=== PATIENT | female | born 1995 | race Caucasian/White ===

== ENCOUNTER 2017-04-15 09:13 | Inpatient (IN) | payer OTHER ==
[2017-04-15] MEDS ORDERED: Lactated Ringer's 1,000 ML IV SCH ×2 (09:40→09:45)
[2017-04-15 09:44] VITALS: BMI 29.6
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
[2017-04-15 11:12] LABS: BASO # 0.1 K/uL (0.0-0.2); BASO % 0.5 % (0.0-2.0); EOS # 0.2 K/uL (0.0-0.7); EOS % 1.8 % (0.0-4.0); HEMOGLOBIN 10.4 g/dL (11.0-16.0); LYMPH # 1.7 K/uL (1.0-4.3); LYMPH % 16.2 % (20.0-40.0); MEAN CELL VOLUME 74.5 fL (81.0-99.0); MEAN CORPUSCULAR HEMOGLOBIN 23.4 pg (27.0-31.0); MEAN CORPUSCULAR HGB CONC 31.4 g/dL (33.0-37.0); MONO # 0.7 K/uL (0.0-0.8); MONO % 6.6 % (0.0-10.0); NEUT # 7.8 K/uL (1.8-7.0); NEUT % 74.9 % (50.0-75.0); RBC 4.43 Mil/uL (3.80-5.20); WHITE BLOOD COUNT 10.5 K/uL (4.8-10.8)
[2017-04-15 11:17] LABS: ALBUMIN 3.3 g/dL (3.5-5.0)
[2017-04-15 11:20] LABS: ALB/GLOB RATIO 0.9 (1.0-2.1); AST/SGOT 40 U/L (14-36); GFR AFRICAN-AMERICAN > 60; GFR NON-AFRICAN AMERICAN > 60
[2017-04-15 11:21] LABS: ALT/SGPT 52 U/L (9-52); BLOOD UREA NITROGEN 9 mg/dL (7-17); CALCIUM 8.6 mg/dl (8.6-10.4); PROTHROMBIN TIME 11.1 SECONDS (9.7-12.2)
[2017-04-15 16:00] LABS: HEMOGLOBIN 9.7 g/dL (11.0-16.0); MEAN CELL VOLUME 74.6 fL (81.0-99.0); MEAN CORPUSCULAR HEMOGLOBIN 23.5 pg (27.0-31.0); MEAN CORPUSCULAR HGB CONC 31.5 g/dL (33.0-37.0); MEAN PLATELET VOLUME 8.5 fL (7.2-11.7); RBC 4.14 Mil/uL (3.80-5.20); RED CELL DISTRIBUTION WIDTH 17.1 % (11.5-14.5); WHITE BLOOD COUNT 11.8 K/uL (4.8-10.8)
[2017-04-15 16:17] LABS: PROTHROMBIN TIME 11.4 SECONDS (9.7-12.2)
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
[2017-04-15 21:58] LABS: BASO % 0.4 % (0.0-2.0); EOS # 0.2 K/uL (0.0-0.7); EOS % 1.8 % (0.0-4.0); LYMPH # 2.1 K/uL (1.0-4.3); LYMPH % 17.3 % (20.0-40.0); MEAN CELL VOLUME 74.2 fL (81.0-99.0); MEAN CORPUSCULAR HEMOGLOBIN 23.2 pg (27.0-31.0); MEAN CORPUSCULAR HGB CONC 31.2 g/dL (33.0-37.0); MEAN PLATELET VOLUME 8.2 fL (7.2-11.7); MONO # 0.8 K/uL (0.0-0.8); MONO % 6.8 % (0.0-10.0); NEUT # 8.8 K/uL (1.8-7.0); NEUT % 73.7 % (50.0-75.0); RBC 4.3 Mil/uL (3.80-5.20); WHITE BLOOD COUNT 11.9 K/uL (4.8-10.8)
[2017-04-15 22:06] LABS: ALBUMIN 3.2 g/dL (3.5-5.0)
[2017-04-15 22:09] LABS: ALT/SGPT 63 U/L (9-52); AST/SGOT 47 U/L (14-36); BLOOD UREA NITROGEN 8 mg/dL (7-17); CALCIUM 8.6 mg/dl (8.6-10.4); GFR AFRICAN-AMERICAN > 60; GFR NON-AFRICAN AMERICAN > 60
[2017-04-15 22:10] LABS: PROTHROMBIN TIME 11.6 SECONDS (9.7-12.2)
[2017-04-16 06:27] LABS: BASO # 0.1 K/uL (0.0-0.2); EOS # 0.2 K/uL (0.0-0.7); HEMOGLOBIN 9.9 g/dL (11.0-16.0); LYMPH % 23.3 % (20.0-40.0); MEAN CELL VOLUME 73.9 fL (81.0-99.0); MEAN CORPUSCULAR HEMOGLOBIN 23.9 pg (27.0-31.0); MEAN CORPUSCULAR HGB CONC 32.3 g/dL (33.0-37.0); MEAN PLATELET VOLUME 8.2 fL (7.2-11.7); MONO # 0.6 K/uL (0.0-0.8); MONO % 6.5 % (0.0-10.0); NEUT # 5.8 K/uL (1.8-7.0); NEUT % 67.2 % (50.0-75.0); RBC 4.16 Mil/uL (3.80-5.20); RED CELL DISTRIBUTION WIDTH 17.1 % (11.5-14.5); WHITE BLOOD COUNT 8.6 K/uL (4.8-10.8)
[2017-04-16 06:39] LABS: INR 1.1; PROTHROMBIN TIME 12.2 SECONDS (9.7-12.2)
[2017-04-16 07:02] LABS: ALBUMIN 3.1 g/dL (3.5-5.0); ALT/SGPT 61 U/L (9-52); AST/SGOT 47 U/L (14-36); BLOOD UREA NITROGEN 9 mg/dL (7-17); CALCIUM 8.4 mg/dl (8.6-10.4); GFR AFRICAN-AMERICAN > 60; GFR NON-AFRICAN AMERICAN > 60
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
[2017-04-16 08:48] LABS: SQUAMOUS EPITHIAL 11 /hpf (0-5); URINE BACTERIA OCC (<OCC); URINE BILIRUBIN NEGATIVE (NEGATIVE); URINE BLOOD NEGATIVE (NEGATIVE); URINE CLARITY Hazy (Clear); URINE COLOR Yellow (YELLOW); URINE GLUCOSE (UA) NORMAL (Normal); URINE LEUKOCYTE ESTERASE 3+ Leu/uL (Negative); URINE NITRATE NEGATIVE (NEGATIVE); URINE PROTEIN NEGATIVE (NEGATIVE); URINE UROBILINOGEN NORMAL mg/dL (0.2-1.0)
[2017-04-16 09:36] LABS: URINE BACTERIA OCC (<OCC); URINE BILIRUBIN NEGATIVE (NEGATIVE); URINE BLOOD NEGATIVE (NEGATIVE); URINE CLARITY Hazy (Clear); URINE COLOR Yellow (YELLOW); URINE GLUCOSE (UA) NORMAL (Normal); URINE LEUKOCYTE ESTERASE 3+ Leu/uL (Negative); URINE NITRATE NEGATIVE (NEGATIVE); URINE PROTEIN NEGATIVE (NEGATIVE); URINE UROBILINOGEN NORMAL mg/dL (0.2-1.0)
[2017-04-16 09:44] LABS: SQUAMOUS EPITHIAL 11 /hpf (0-5)
== END 2017-04-16 13:05 | disposition home or self-care (01) | DRG 914 ==
LOC: C.EROB 09:13 → C.4D 09:22
PROVIDERS: ADMIT Obstetrics & Gynecology; ATTEND Obstetrics & Gynecology
DX: S39.81XA Other specified injuries of abdomen, initial encounter (principal); Z3A.38 38 weeks gestation of pregnancy; V49.88XA Car occupant (driver) (passenger) injured in other specified transport accidents, initial encounter

== ENCOUNTER 2017-04-24 12:16 | Inpatient (IN) | payer OTHER ==
[2017-04-24] MEDS ORDERED: Dextrose 5%/Lactated Ringer's 1,000 ML IV SCH (12:45)
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
[2017-04-24 12:55] LABS: BASO # 0.1 K/uL (0.0-0.2); BASO % 0.5 % (0.0-2.0); EOS # 0.1 K/uL (0.0-0.7); EOS % 1.4 % (0.0-4.0); HEMOGLOBIN 10.9 g/dL (11.0-16.0); LYMPH # 1.4 K/uL (1.0-4.3); LYMPH % 14.2 % (20.0-40.0); MEAN CELL VOLUME 74.1 fL (81.0-99.0); MEAN CORPUSCULAR HGB CONC 32.4 g/dL (33.0-37.0); MEAN PLATELET VOLUME 8.2 fL (7.2-11.7); MONO # 0.5 K/uL (0.0-0.8); MONO % 4.6 % (0.0-10.0); NEUT # 7.9 K/uL (1.8-7.0); NEUT % 79.3 % (50.0-75.0); RBC 4.54 Mil/uL (3.80-5.20)
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
[2017-04-24] MEDS ORDERED: Oxytocin 30 UNIT 30 UNITS/500 ML BAG IV SCH ×2 (13:00→17:00)
[2017-04-24 13:04] LABS: ALBUMIN 3.4 g/dL (3.5-5.0)
[2017-04-24 13:07] LABS: ALB/GLOB RATIO 0.9 (1.0-2.1); AST/SGOT 44 U/L (14-36); BLOOD UREA NITROGEN 6 mg/dL (7-17); GFR AFRICAN-AMERICAN > 60; GFR NON-AFRICAN AMERICAN > 60
[2017-04-24 13:08] LABS: ALT/SGPT 57 U/L (9-52); CALCIUM 8.4 mg/dl (8.6-10.4)
[2017-04-24 13:38] LABS: HEPATITIS B SURFACE AG NEGATIVE (NEGATIVE)
[2017-04-24] MEDS ORDERED: Oxytocin 30 UNIT 30 UNITS/500 ML BAG IV ONE (13:46)
--- NOTE | 2017-04-24 15:07 | OBPN ---
Datetime: 04/24/2017 15:05 IP Progress Impression: Normal progression of labor IP Informed Consent Obtain: Vaginal Delivery IP Procedures: Artificial ROM IP Progress Plan: Continue present management Membranes, Provider: Ruptured Amniotic Fluid Color, Provider: Clear FHR - Baseline A Provider: 135 IP Progress Note Comment: pt seen and examiend reports feeling pressue, ctx pain, 03/13, denies lof, vb, +Fm. decliend pianmanamgnet at this time vss ve see above AROM / clear A/p @ 39+ wks GA Augmentation of labor, GBS positive -pitocin per prototol -cont toco and efm -epidural prn -gbs propylaxis -cont current mangent Vital Signs Provider: Reviewed NICHD Accel Fetus A IP Provider: 15X15 FHR Category Provider Fetus A: Category I NICHD Variability Prov Fetus A: Moderate 6-25bpm Dilatation, Provider: 5 Effacement, Provider: 70 Station, Provider: -2 Datetime: 04/24/2017 12:42 Contraction Comments Provider: q 4-6 min Gestation - Est Wks by US: 39.3 Weight - Estimated: 3300 Presentation-Admit: Vertex NICHD Decel Fetus A IP Provider: None
[2017-04-24] MEDS ORDERED: Bupivacaine HCl 0.25% PF (10 ml) Inj ONE (15:30)
[2017-04-24] MEDS ORDERED: Bupivacaine 0.125%/FentaNYL 0 ML EPI ONE (15:31)
[2017-04-24] MEDS ORDERED: Benzocaine/Menthol 20%-0.5% Topical Spray (60 ml) TOP PRN (16:59)
[2017-04-24] MEDS ORDERED: Oxycodone/Acetaminophen 5/325 mg Tab PO PRN ×2 (16:59)
--- NOTE | 2017-04-24 17:00 | OBDS ---
DELIVERY PERSONNEL Delivery Doctor: El Keene MD MATERNAL INFORMATION Maternal Complications: None Provider Comments: pt was fully dilated and pushing. atrauamtic spontaneous delivery of head in TAMI position, no nuchal cord. followed by atraumatc, spontaneous delivery of anterior followed by posteri or shoulder followed by delivery of body. Both oral and nasal passages of the baby were bulb suctione d after a vigrous cry. Umbilcal cord clamped and cut. Baby handed to mother on abomen with RN karmen oneal. Cord blood collected and sent x 2. Spontaneous delilvery of intact placenta with membranes. Fu ndus fimr, good hemostaiss. No complicatoins. Live male . 9,9 Weight 6lb 15 ounces EBL 200ml no complications LABOR SUMMARY EDC: 04/28/2017 00:00 No. Babies in Womb: 1 Attempted: No LABOR INFORMATION Reason for Induction: Not Applicable Onset of Labor: 04/24/2017 12:49 Oxytocin: Augmentation Group B Beta Strep: Positive Steroids Given: None Reason Steroids Not Administered: Not Applicable MEMBRANES Membranes Rupture Method: Artificial Rupture of Membranes: 04/24/2017 14:50 Length of Rupture (hrs): 1.88 Amniotic Fluid Color: Clear Amniotic Fluid Amount: Moderate Amniotic Fluid Odor: Normal STAGES OF LABOR Stage 3 hrs: 0 Stage 3 min: 2 Total Time in Labor hrs: 3 Total Time in Labor min: 56 VAGINAL DELIVERY Laceration Repair Note: intact Count Comment: count correct yes BABY A INFORMATION Infant Delivery Date/Time: 04/24/2017 16:43 Method of Delivery: Vaginal Born in Route : No : N/A Forceps: N/A Vacuum Extraction: N/A Shoulder Dystocia : No SHOULDER DYSTOCIA BABY A Delivery Date/Time: 04/24/2017 16:43 PRESENTATION/POSITION BABY A Presentation: Cephalic Cephalic Presentation: Vertex Vertex Position: Right Occipital Anterior Breech Presentation: N/A PLACENTA INFORMATION BABY A Placenta Delivery Time : 04/24/2017 16:45 Placenta Method of Delivery: Spontaneous Placenta Status: Delivered SCORES BABY A Heart Rate 1 min: >100 bpm Resp Effort 1 min: Good Cry Reflex Irritability 1 min: Cough or Sneeze or Pulls Away Muscle Tone 1 min: Active Motion Color 1 min: Body Waterproof, Extremities Blue Resuscitation Effort 1 min: Tactile Stimulation SCORE 1 MIN: 9 Heart Rate 5 min: >100 bpm Resp Effort 5 min: Good Cry Reflex Irritability 5 min: Cough or Sneeze or Pulls Away Muscle Tone 5 min: Active Motion Color 5 min: Body Waterproof, Extremities Blue SCORE 5 MIN: 9 INFORMATION BABY A Gestational Age at Delivery: 39.0 Gestational Status: Term Outcome : Liveborn Condition : Stable Infant Sex: Male IDENTIFICATION/MEDS BABY A ID Band Number: [id number] ID Band Location: Left Leg; Left Arm Sensor Applied: Yes Sensor Number: [id number] Sensor Location : Cord Clamp WEIGHT/LENGTH BABY A Infant Birthweight (gms): 3160 Infant Weight (lb): 6 Weight (oz): 15 Length Inches: 19.50 Infant Length cms: 49.5 CORD INFORMATION BABY A No. Cord Vessels: 3 Nuchal Cord : N/A Cord Blood Taken: Yes Infant Suction: Mouth; Nose ASSESSMENT BABY A Complications: None Complications Other: none Physical Findings at Delivery: Within Normal Limits Respirations: Appears Normal Ships Equipment Engineer/ALS Called : No Care By: sharan Transferred To: Remains with Mother
[2017-04-24 18:35] LABS: SQUAMOUS EPITHIAL 5 /hpf (0-5); URINE BACTERIA RARE (<OCC); URINE BILIRUBIN NEGATIVE (NEGATIVE); URINE BLOOD NEGATIVE (NEGATIVE); URINE CLARITY Clear (Clear); URINE COLOR Yellow (YELLOW); URINE GLUCOSE (UA) NORMAL (Normal); URINE LEUKOCYTE ESTERASE NEG Leu/uL (Negative); URINE NITRATE NEGATIVE (NEGATIVE); URINE PROTEIN NEGATIVE (NEGATIVE); URINE UROBILINOGEN NORMAL mg/dL (0.2-1.0)
[2017-04-24 19:07] VITALS: RESP 20
[2017-04-25 08:06] LABS: MEAN CELL VOLUME 74.4 fL (81.0-99.0); MEAN CORPUSCULAR HEMOGLOBIN 23.7 pg (27.0-31.0); MEAN CORPUSCULAR HGB CONC 31.9 g/dL (33.0-37.0); MEAN PLATELET VOLUME 8.6 fL (7.2-11.7); RBC 4.22 Mil/uL (3.80-5.20); RED CELL DISTRIBUTION WIDTH 17.6 % (11.5-14.5); WHITE BLOOD COUNT 14.4 K/uL (4.8-10.8)
[2017-04-25] MEDS: Multiple Vitamins Tab PO SCH (09:30)
--- NOTE | 2017-04-25 11:43 | OBPPN ---
Datetime: 04/25/2017 11:40 PP Pain Prov: Within normal limits PP Nausea Prov: Denies PP Flatus Prov: Yes PP BM Prov: No PP Breasts Prov: Normal PP Heart Prov: Normal PP Lungs Prov: Normal PP Abdomen/Uterus Prov: Normal PP Lochia Prov: Normal PP Vulva/Perineum Prov: Normal PP CVA Tenderness Prov: Normal PP Extremities Prov: Normal PP C/S Incision Prov: Not Applicable PP Progress Prov: Normal PP Impression Prov: Normal progression PP Plan Prov: Continue present management PP Progress Note Prov: pt seen and examined and reports pain is controlled with medication. pt is am bualting and voiding without difficulty. Pt denies any fevers, chills, nausea or vomiting, CP, SOB. P t reports passing flatus, no BM. Pt denies heavy bleeding Pt is breast feeding. VSS PE: GEN NAD, AAOx 3 BREAST: NT, Non engorbed b/l CVS: RRR, +S1/S2 RESP: CTAB/l ABD: Soft, NT/ND, +BS. non distneed, no guarding, no rebound tendeness, no rigidity FUNDUS: Firm, at level of umbilicus, minimal lochia, non foul smelling EXT: negative homans sign, negative calf tenderness a/p s/p PPD #1 doing well -pain managment: percocet/motrin -Diet: regular -Activity: ambuation, encourage breast feeding -f/u am labs IP PP Procedures: None Vital Signs Provider PP: Reviewed; Within Normal Limits
[2017-04-25 14:04] LABS: BASO % 0.2 % (0.0-2.0); EOS # 0.2 K/uL (0.0-0.7); EOS % 1.2 % (0.0-4.0); HEMOGLOBIN 9.9 g/dL (11.0-16.0); LYMPH # 2.6 K/uL (1.0-4.3); LYMPH % 17.5 % (20.0-40.0); MEAN CELL VOLUME 74.7 fL (81.0-99.0); MEAN CORPUSCULAR HEMOGLOBIN 23.2 pg (27.0-31.0); MEAN PLATELET VOLUME 8.5 fL (7.2-11.7); MONO # 0.8 K/uL (0.0-0.8); MONO % 5.6 % (0.0-10.0); NEUT % 75.5 % (50.0-75.0); RBC 4.29 Mil/uL (3.80-5.20); RED CELL DISTRIBUTION WIDTH 17.4 % (11.5-14.5); WHITE BLOOD COUNT 14.6 K/uL (4.8-10.8)
[2017-04-25 16:16] VITALS: O2SAT 98
[2017-04-26 00:18] VITALS: BP 103/62; PULSE 68; TEMP 97.3
--- NOTE | 2017-04-26 07:35 | OBDCSUM ---
Datetime: 04/26/2017 07:34 Discharged to, Provider: Home Follow up at, Provider: [facility] Discharge Diagnosis, Provider: Term Delivered Follow up in weeks, Provider: clinic Disch Activity Restrictions: No exercising; No lifting; No driving; Minimize walking; Minimize stair -climbing; No sexual activity; Nothing in vagina - [place], tampons, douche Discharge Comment, Provider: no sex motrin prn f/u in 6[facility]
--- NOTE | 2017-04-26 07:35 | OBPPN ---
Datetime: 04/26/2017 07:33 PP Pain Prov: Within normal limits PP Nausea Prov: Denies PP Flatus Prov: Yes PP Abdomen/Uterus Prov: Normal PP Lochia Prov: Normal PP Extremities Prov: Normal PP Comments Phys Exam Prov: fudus below umblicus ext mild edema,no calf ten PP Impression Prov: Normal progression PP Plan Prov: Discharge PP Progress Note Prov: pt was seen at bed side, pain under control,no n/v, tolerating deit, voiding, min lochia, flatus+ ppd#2 s/p dc home no sex motrin prn f/u in 6wee Vital Signs Provider PP: Reviewed; Within Normal Limits
[2017-04-26] MEDS: Multiple Vitamins Tab PO SCH (09:13)
== END 2017-04-26 12:00 | disposition home or self-care (01) | DRG 373 ==
LOC: C.EROB 12:16 → C.4D 12:31 → C.4M 18:00
PROVIDERS: ADMIT Obstetrics & Gynecology; ATTEND Obstetrics & Gynecology
PROC: 10E0XZZ Delivery of Products of Conception, External Approach (ICD-10-PCS; principal; 2017-04-24)
PROC: 10907ZC Drainage of Amniotic Fluid, Therapeutic from Products of Conception, Via Natural or Artificial Opening (ICD-10-PCS; 2017-04-24)
DX: O99.284 Endocrine, nutritional and metabolic diseases complicating childbirth (principal); E03.9 Hypothyroidism, unspecified; O99.824 Streptococcus B carrier state complicating childbirth; Z3A.39 39 weeks gestation of pregnancy; Z37.0 Single live birth

== ENCOUNTER 2018-09-21 18:33 | Emergency (ER) | payer OTHER ==
[2018-09-21 18:33] VITALS: BMI 29.6
[2018-09-21] MEDS ORDERED: Sodium Chloride 0.9% 1,000 ML IV ONE (19:37)
[2018-09-21 19:45] LABS: BASO % 0.4 % (0.0-2.0); EOS # 0.2 K/uL (0.0-0.7); EOS % 1.7 % (0.0-4.0); HEMOGLOBIN 9.5 g/dL (11.0-16.0); LYMPH # 1.8 K/uL (1.0-4.3); LYMPH % 16.1 % (20.0-40.0); MEAN CORPUSCULAR HEMOGLOBIN 21.6 pg (27.0-31.0); MEAN CORPUSCULAR HGB CONC 31.6 g/dL (33.0-37.0); MEAN PLATELET VOLUME 7.3 fL (7.2-11.7); MONO # 0.8 K/uL (0.0-0.8); MONO % 7.2 % (0.0-10.0); NEUT # 8.2 K/uL (1.8-7.0); NEUT % 74.6 % (50.0-75.0); RBC 4.41 Mil/uL (3.80-5.20); RED CELL DISTRIBUTION WIDTH 19.5 % (11.5-14.5)
[2018-09-21 19:47] LABS: MEAN CELL VOLUME 68.5 fL (81.0-99.0)
--- NOTE | 2018-09-21 19:47 | C.PDOC ---
History Of Present Illness 22 year old female presents to the ER with a complaint of vaginal bleeding and abdominal pain that began today. Patient is 17 weeks . Denies fever or chills. Chief Complaint (Nursing): Dizziness/Lightheaded History Per: Patient History/Exam Limitations: no limitations Onset/Duration Of Symptoms: Hrs Current Symptoms Are (Timing): Still Present Quality Of Discomfort: Unable To Describe Associated Symptoms: denies: Fever, Chills Alleviating Factors: None Recent travel outside of the [place]: No Abnormal Vaginal Bleeding: Yes Past Medical History Reviewed: Historical Data, Nursing Documentation, Vital Signs Vital Signs: Last Vital Signs Temp 97.6 F 09/21/18 18:38 Pulse 82 09/21/18 18:38 Resp 18 09/21/18 18:38 BP 122/80 09/21/18 18:38 Pulse Ox 100 09/21/18 18:38 - Medical History PMH: Anemia, Asthma, Hypothyroidism Denies: Chronic Kidney Disease Surgical History: Cholecystectomy - [facility] Procedures DELIVERY OF PRODUCTS OF CONCEPTION, EXTERNAL APPROACH (04/24/17) DIVISION OF FEMALE PERINEUM, EXTERNAL APPROACH (12/09/15) DRAINAGE OF AMNIOTIC FL, THERAP FROM POC, VIA OPENING (04/24/17) EPISIOTOMY (11/11/14) RESECTION OF GALLBLADDER, PERCUTANEOUS ENDOSCOPIC APPROACH (02/25/16) Family History: States: Unknown Family Hx - Social History Hx Tobacco Use: No Hx Alcohol Use: No Hx Substance Use: No - Immunization History Hx Tetanus Toxoid Vaccination: No Hx Influenza Vaccination: No Hx Pneumococcal Vaccination: No Review Of Systems Constitutional: Negative for: Fever, Chills Cardiovascular: Negative for: Chest Pain, Palpitations Respiratory: Negative for: Cough, Shortness of Breath Gastrointestinal: Positive for: Abdominal Pain. Negative for: Nausea, Vomiting Genitourinary: Positive for: Vaginal Bleeding Neurological: Negative for: Weakness, Numbness Physical Exam - Physical Exam Appears: Non-toxic, No Acute Distress Skin: Normal Color, Warm, Dry Head: Atraumatic, Normacephalic Eye(s): bilateral: Normal Inspection Oral Mucosa: Moist Neck: Normal, Supple Chest: Symmetrical, No Tenderness Cardiovascular: Rhythm Regular Respiratory: Normal Breath Sounds, No Rales, No Rhonchi, No Wheezing Gastrointestinal/Abdominal: Soft, Tenderness (Mild to hypogastric area), No Guar ding, No Rebound Back: No CVA Tenderness Pelvic: Other (No active bleeding, cervix closed.) Neurological/Psych: Oriented x3, Normal Speech ED Course And Treatment - Laboratory Results Result Diagrams: 09/21/18 19:36 09/21/18 19:36 O2 Sat by Pulse Oximetry: 100 (Room air) Pulse Ox Interpretation: Normal Progress Note: Blood work, urinalysis, and transvaginal US ordered. IV fluids administered. Disposition Counseled Patient/Family Regarding: Diagnosis - Disposition Referrals: [facility] [Outside] Disposition: HOME/ ROUTINE Disposition Time: 22:03 Condition: STABLE Instructions: Placenta Previa Forms: [employer] (Armenian) - POA Present On Arrival: None - Clinical Impression Clinical Impression: Placenta previa - Scribe Statement The provider has reviewed the documentation as recorded by the Scribe Carter Ibanez All medical record entries made by the Scribe were at my direction and personally dictated by me. I have reviewed the chart and agree that the record accurately reflects my personal performance of the history, physical exam, medical decision making, and the department course for this patient. I have also personally directed, reviewed, and agree with the discharge instructions and disposition.
[2018-09-21 20:02] LABS: ALB/GLOB RATIO 1.2 (1.0-2.1); ALT/SGPT 24 U/L (9-52); AST/SGOT 19 U/L (14-36); BLOOD UREA NITROGEN 10 mg/dL (7-17); CALCIUM 8.8 mg/dl (8.6-10.4); GFR NON-AFRICAN AMERICAN > 60
[2018-09-21 20:06] LABS: SQUAMOUS EPITHIAL 8 /hpf (0-5); URINE BACTERIA RARE (<OCC); URINE BILIRUBIN NEGATIVE (NEGATIVE); URINE BLOOD NEGATIVE (NEGATIVE); URINE CLARITY Clear (Clear); URINE COLOR Straw (YELLOW); URINE GLUCOSE (UA) NORMAL (Normal); URINE LEUKOCYTE ESTERASE NEG Leu/uL (Negative); URINE PROTEIN NEGATIVE (NEGATIVE); URINE UROBILINOGEN NORMAL mg/dL (0.2-1.0)
[2018-09-21 20:18] LABS: INR 1.1; PROTHROMBIN TIME 12.3 SECONDS (9.7-12.2)
[2018-09-21 21:45] VITALS: TEMP 98.3
[2018-09-21 22:15] VITALS: BP 122/66; PULSE 74; RESP 16; O2SAT 98
--- NOTE | 2018-09-22 10:47 | US ---
Indication: vaginal bleed/ pain Comparison: OB limited/biophysical profile performed 04/15/17. Technique: Real-time ultrasound was performed through the pelvis. Findings: There is a single living fetus in transverse presentation. Posterior placenta. The placenta appears to cover the os. Cervix length measures approximately 4.8 cm. There are no adnexal masses or cysts evident. Measurements and calculations: Fetus has a composite sonographic age of 17 weeks 5 days. This calculation is based on the biparietal diameter, head circumference, abdominal circumference, and femur length. Estimated heart rate 144 beats per min. Estimated weight 202.21 g. Impression: Single living fetus with a composite sonographic age of 17 weeks 5 days. Posterior placenta which appears to cover the os. Currently, there is evidence of placenta previa. Due to placental trophotropism, the diagnosis of the placenta previa is generally not made before 20 weeks gestation. Follow-up ultrasound is recommended. Estimated heart rate 144 beats per min. The study was performed for the emergent evaluation of vaginal bleeding/pain, and the whole anatomic survey of the fetus was not performed. This should be performed on an outpatient elective basis as clinically warranted. Preliminary impression was provided by [facility].
== END 2018-09-21 22:14 | disposition home or self-care (01) ==
LOC: C.ER 18:33
DX: O44.02 Complete placenta previa NOS or without hemorrhage, second trimester (principal); Z3A.17 17 weeks gestation of pregnancy
CPT/HCPCS: 76815; 80053; 81001; 82948; 84702; 85025; 85610; 85730; 96360; 96361; 99285; J7030

== ENCOUNTER 2018-11-18 21:50 | Emergency (ER) | payer MEDICAID, OTHER ==
[2018-11-18 22:30] VITALS: BMI 30.7
[2018-11-18 22:47] LABS: SQUAMOUS EPITHIAL 1 /hpf (0-5); URINE BACTERIA RARE (<OCC); URINE BILIRUBIN NEGATIVE (NEGATIVE); URINE BLOOD NEGATIVE (NEGATIVE); URINE CLARITY Clear (Clear); URINE COLOR Yellow (YELLOW); URINE GLUCOSE (UA) NORMAL (Normal); URINE LEUKOCYTE ESTERASE NEG Leu/uL (Negative); URINE PROTEIN NEGATIVE (NEGATIVE); URINE UROBILINOGEN NORMAL mg/dL (0.2-1.0)
--- NOTE | 2018-11-19 00:28 | OBHP ---
Datetime: 11/19/2018 00:13 IP Adm Impression: , intrauterine ; No Active Labor; Intact Membranes IP Chief Complaint Other: RLQ pain constant and sharp IP Admit Plan: Observation/Evaluation Admit Comment, IP Provider: 23 yo female with an IUP at 26.1 weeks and presented with c/o o f RLQ pain that she described as sharp, constant and started after she did several loads of laundry. She gave a 10 of 10 for her pain on presentation. Admitted to adequate FM and denied LOF, VB or spott ing. At the end of the interview she said, by the way I was told that I have placenta previa. PMHx Negative PsHx: Cholecystitits Meds; PNV NKDA Social Hx Ngative x 3 PE as noted above A_P 26.1 weeks IUP Sharp and constant RLQ pain that has ressolved completely since resting in bed NST Reactive No contractions recorded or palpated SVE deferred since + Placenta Previa UA done and WNL Abdomen soft and non-tender Stable and Satisfactory condition D/W Dr. Miranda and pt discharged home with instructions to rest and to f/up with Dr. Miranda on schedul ed appointment next week or prn. Pelvic Type - PN: Adequate Extremities - PN: Normal Abdomen - PN: Normal Back - PN: Normal Breast - PN: Not Done Lungs - PN: Normal Heart - PN: Normal Thyroid - PN: Normal Neurologic - PN: Normal HEENT - PN: Normal General - PN: Normal FHR - Baseline A Provider: 140 Membranes, Provider: Intact Contraction Comments Provider: None Gestation - Est Wks by US: 26.1 EGA AdmitDate IP: 26.1 Vital Signs Provider: Reviewed; Within Normal Limits IP Chief Complaint: Maternal discomfort; Other NICHD Variability Prov Fetus A: Moderate 6-25bpm NICHD Accel Fetus A IP Provider: 10X10 NICHD Decel Fetus A IP Provider: None Genitourinary Exam: Normal DTRs - PN: Normal
--- NOTE | 2018-11-19 00:29 | OBDCSUM ---
Datetime: 11/19/2018 00:10 Discharged to, Provider: Home Follow up at, Provider: Dr. Miranda Disch Instr Activity: Normal activity Disch Instr Diet: Regular Discharge Time: 11/19/2018 00:10 Follow up in weeks, Provider: scheduled appointment Disch Referrals: None Disch Activity Restrictions: No lifting; Minimize stair-climbing; No sexual activity; Nothing in vag sagar - Rainbow, tampons, douche Discharge Comment, Provider: 23 yo female with an IUP at 26.1 weeks and presented with c/o of RLQ pain that she described as sharp, constant and started after she did several loads of laundry. She gave a 10 of 10 for her pain on presentation. Admitted to adequate FM and denied LOF, VB or spot ting. At the end of the interview she said, by the way I was told that I have placenta previa. PMHx Negative PsHx: Cholecystitits Meds; PNV NKDA Social Hx Ngative x 3 PE as noted above A_P 26.1 weeks IUP Sharp and constant RLQ pain that has ressolved completely since resting in bed NST Reactive No contractions recorded or palpated SVE deferred since + Placenta Previa UA done and WNL Abdomen soft and non-tender Stable and Satisfactory condition D/W Dr. Miranda and pt discharged home with instructions to rest and to f/up with Dr. Miranda on schedul ed appointment next week or prn. Discharge Diagnosis Prov Other: RLQ pain - Ressolved Placenta Previa Not in labor
[2018-11-21 18:34] VITALS: BP 114/59; PULSE 97; RESP 20; TEMP 97.4
== END 2018-11-19 00:10 | disposition home or self-care (01) ==
LOC: C.EROB 21:50
DX: O44.02 Complete placenta previa NOS or without hemorrhage, second trimester (principal); Z3A.26 26 weeks gestation of pregnancy

== ENCOUNTER 2019-01-23 17:07 | Emergency (ER) | payer OTHER, MEDICAID | END 2019-01-23 22:00 | disposition home or self-care (01) | LOC: C.EROB 17:07 ==

== ENCOUNTER 2019-01-24 21:25 | Emergency (ER) | payer OTHER ==
[2019-01-24] MEDS ORDERED: Betamethasone Soluspan 30 mg/5mL Inj Susp IM ONE (21:43)
[2019-01-24 22:00] VITALS: BMI 30.7
--- NOTE | 2019-01-25 01:42 | OBHP ---
Datetime: 01/24/2019 21:49 IP Chief Complaint Other: Patietn returns for 2nd shot of celestone IP Adm Impression Other: Premauter uterine contracaions; partial placenta praevia IP Admit Plan: Discharge home Admit Comment, IP Provider: Patietn received in LDR#2 - returns for second shot of celestone 23 y.o. P3, 35w 4d seen 01/23 c.o abdominal pain and found to be 1 cm dilated. Given celestone IM x 1; returns for second dose to complete course. (+) AFM; denies LOF, VB. Patient has not seen Ob provider x approx 2 months since loss of medical insurance. Prior to this, was aware of low lying placenta versus placenta praevia. Patient had Ob ultrasound 01/23/19; read by Radiology Attending Dr. Maryann Kat 01/24/19 at approx 0800 hours as "findings consistent with part ial placenta praevia". See History from 01/23/19 Assessment: 23 y.ol P3, 35w 4d, uterine contractions - resolved; to complete course of anthony roids. Placenta praevia - as above. This was D/W patient. The importance of resuming care wa s reinforced, with the possiblity of an additional ultrasound for confirmaiton. If placenta praevia h as persisted. patient counseled on delivery by C/S. Patient desires a vaginal delivery. Category 1 tr aicng. Patient is clinically stable. Plan: 1) Administer Celestone 12 mg IM x 1 2) Reviewed S/S PTL 3) Patient to go to [facility] 01/25/19 for care visit 4) Discharged home Pelvic Type - PN: Not Done Extremities - PN: Not Done Abdomen - PN: Normal Back - PN: Not Done Breast - PN: Not Done Lungs - PN: Normal Heart - PN: Normal Thyroid - PN: Not Done Neurologic - PN: Normal HEENT - PN: Normal General - PN: Normal FHR - Baseline A Provider: 140 Contraction Comments Provider: none Comments, ACOG Physical Exam: All systems reviewed and are negative Gestation - Est Wks by US: 35w 4d EGA AdmitDate IP: 35.4 Vital Signs Provider: Reviewed; Within Normal Limits IP Chief Complaint: Other NICHD Variability Prov Fetus A: Moderate 6-25bpm NICHD Accel Fetus A IP Provider: 10X10 NICHD Decel Fetus A IP Provider: None Dilatation, Provider: deferred Genitourinary Exam: Not Done DTRs - PN: Not Done
[2019-01-25 05:34] VITALS: BP 92/47; PULSE 93; RESP 18; TEMP 97.5
== END 2019-01-24 23:20 | disposition home or self-care (01) ==
LOC: C.EROB 21:25
DX: O47.03 False labor before 37 completed weeks of gestation, third trimester (principal); O44.03 Complete placenta previa NOS or without hemorrhage, third trimester; Z3A.35 35 weeks gestation of pregnancy
CPT/HCPCS: 96372; 99284; J0702

== ENCOUNTER 2019-02-23 09:30 | Inpatient (IN) | payer OTHER | END 2019-02-25 13:01 | disposition home or self-care (01) | LOC: C.EROB 09:30 → C.4D 10:08 → C.4M 16:12 ==